=== PATIENT | male | born 1940 | race Hispanic/Latino ===

== ENCOUNTER 2021-12-21 07:49 | Observation (INO) | payer MEDICARE ==
[2021-12-19 10:47] LABS: BASOPHILS % (AUTO) 0.5 % (0.0-5.0); EOSINOPHILS % (AUTO) 2.5 % (0.0-8.0); LYMPHOCYTES % (AUTO) 19.4 % (21.0-51.0); MEAN CORPUSCULAR HEMOGLOBIN 29.4 pg (27.0-33.0); MEAN CORPUSCULAR HGB CONC 32.3 g/dL (32.0-36.0); MEAN CORPUSCULAR VOLUME 91.1 fL (79-99); MONOCYTES % (AUTO) 7.9 % (3.0-13.0); NEUTROPHILS % (AUTO) 69.4 % (40.0-77.0); PLATELET COUNT (AUTO) 142 K/uL (130-400); RED BLOOD CELL COUNT(AUTO) 4.39 MIL/uL (4.50-6.20); RED CELL DISTRIBUTION WIDTH 13.9 % (11.0-15.5); WHITE BLOOD COUNT (AUTO) 6.3 K/uL (4.8-10.8)
[2021-12-19 10:56] LABS: ALBUMIN 3.8 g/dL (3.5-5.0); CARBON DIOXIDE 28 mmol/L (21-32); CHLORIDE 106 mmol/L (101-111); CREATININE 1.4 mg/dL (0.5-1.5); CRP QUANTITATIVE < 2.00 mg/L (0.00-9.0); GLOMERULAR FILTR. RATE CALC 51 mL/min (>60); GLUCOSE,RANDOM 94 mg/dL (70-105); SODIUM SERUM 140 mmol/L (136-145); UREA NITROGEN, BLOOD 22 mg/dL (7-18)
[2021-12-19 10:57] LABS: INR 0.93 (0.85-1.15); PROTHROMBIN TIME 10.1 SEC (9.6-11.6)
[2021-12-19 10:58] LABS: PARTIAL THROMBOPLASTIN TIME 32.2 SEC (26.3-35.5)
[2021-12-19 11:01] LABS: POTASSIUM 6.1 mmol/L (3.5-5.1)
[2021-12-19 11:19] LABS: APPEARANCE,URINE CLEAR (CLEAR); BILIRUBIN,URINE NEGATIVE (NEGATIVE); COLOR,URINE LIGHT-YELLOW (YELLOW); GLUCOSE, URINE (UA) NEGATIVE (NEGATIVE); KETONES,URINE NEGATIVE (NEGATIVE); LEUKOCYTE ESTERASE ,URINE NEGATIVE Leu/uL (NEGATIVE); NITRATE,URINE NEGATIVE (NEGATIVE); OCCULT BLOOD,URINE NEGATIVE (NEGATIVE); PROTEIN,URINE NEGATIVE (NEGATIVE); UROBILINOGEN,URINE 0.2 mg/dL (0.2-1.0)
[2021-12-20 11:25] VITALS: BP 145/73
[2021-12-21] VITALS (21 sets, daily range): BP systolic 114–166; BP diastolic 54–80
[~2021-12-21] VITALS: Ht 160 cm; Wt 76.0 kg
[~2021-12-21 07:49] MED LIST: AMLO-258 PO; ASCO500C18 PO; ASPI-1005 PO; CETI10TA57 PO; CHOL100046 PO; FEXO-23 PO; FISH1CAP27 PO; LOVA10TA2 PO; MULT-1258 PO; PANT40TA PO; POTA99TA26 PO; VALS320T16 PO
[2021-12-21] MEDS ORDERED: LACTATED RINGERS 1000ML 1,000 ML IV ONE (08:36)
[2021-12-21] MEDS: CEFAZOLIN SODIUM 1 GM VIAL IVPB SCH ×2 (09:00→14:46)
[2021-12-21 09:16] LABS: CREATININE 1.5 mg/dL (0.5-1.5); POTASSIUM 5.1 mmol/L (3.5-5.1)
[2021-12-21] MEDS ORDERED: FENTANYL CITRATE PF 50 MCG/1 ML 5ML AMP IV ONE (10:43)
[2021-12-21] MEDS ORDERED: KETOROLAC 30MG VIAL (30MG/ML) ONE (11:09)
[2021-12-21] MEDS ORDERED: TRANEXAMIC ACID 1000MG/10ML ONE ×2 (11:09→11:12)
[2021-12-21] MEDS ORDERED: ROPIVACAINE 0.5% 5MG/ML 30ML IJ ONE ×3 (11:09→12:56)
[2021-12-21] MEDS ORDERED: PHENYLEPHRINE HCL 10 MG/ML 1ML VIAL IV ONE (12:13)
[2021-12-21] MEDS ORDERED: SUCCINYLCHOLINE CHLORIDE 20 MG/ML 10 ML VIAL ONE (12:46)
[2021-12-21] MEDS ORDERED: DEXAMETHASONE SOD PHOSPHATE 10MG/ML 1ML VIAL ONE (12:46)
[2021-12-21] MEDS ORDERED: LIDOCAINE PF 100MG/5ML (2%) SYRINGE 5ML ONE (12:46)
[2021-12-21] MEDS ORDERED: GLYCOPYRROLATE 1 MG/5 ML SYRINGE ONE (12:48)
[2021-12-21] MEDS ORDERED: NEOSTIGMINE 5MG/5ML SYR IV ONE (12:48)
[2021-12-21] MEDS ORDERED: ONDANSETRON 4MG INJ ONE (12:48)
[2021-12-21] MEDS ORDERED: PROPOFOL 10 MG/ML 20ML VIAL IV ONE (12:48)
[2021-12-21] MEDS ORDERED: ROCURONIUM 10MG/1ML SYR 10 MG/ML ML ONE (12:49)
[2021-12-21] MEDS ORDERED: MIDAZOLAM HCL 1 MG/ML 2ML VIAL ONE (12:49)
[2021-12-21] MEDS ORDERED: FENTANYL CITRATE PF 50 MCG/1 ML 2ML VIAL ONE (13:02)
[2021-12-21] MEDS ORDERED: EPHEDRINE SULFATE 50 MG/ML AMPULE ONE (15:23)
[2021-12-21] MEDS ORDERED: KETOROLAC 15MG/ML VIAL (15MG/ML) IV PRN (16:00)
[2021-12-21] MEDS ORDERED: LIDOCAINE HCL-MPF 1% 2ML VIAL IV PRN (16:00)
[2021-12-21] MEDS ORDERED: TRAMADOL HCL 50 MG TABLET PO PRN (16:00)
[2021-12-21] MEDS ORDERED: ONDANSETRON 4MG INJ IVP PRN (16:00)
[2021-12-21] MEDS ORDERED: POTASSIUM CHLORIDE 10% ELIXIR 20 MEQ/15 ML UDCUP PO PRN (16:00)
[2021-12-21] MEDS ORDERED: CALCIUM CARB 500MG PO PRN (16:00)
[2021-12-21] MEDS ORDERED: CYCLOBENZAPRINE HCL 10 MG TABLET PO PRN (16:00)
[2021-12-21] MEDS: KETOROLAC 15MG/ML VIAL (15MG/ML) IV SCH ×2 (16:00→23:23)
[2021-12-21] MEDS ORDERED: DiphenhydrAMINE HCL 50 MG/ML VIAL IVP PRN (16:00)
[2021-12-21] MEDS ORDERED: FERROUS FUMARATE 324 MG TABLET PO PRN (16:00)
[2021-12-21] MEDS ORDERED: KCL 20 MEQ ERTAB PO PRN (16:00)
[2021-12-21] MEDS ORDERED: POTASSIUM CHLORIDE 20MEQ/100ML 100 ML IV PRN (16:00)
[2021-12-21] MEDS: 0.9%NACL 1000ML 1,000 ML IV SCH ×2 (17:40→23:24)
[2021-12-21] MEDS: HYDROCODONE/ACETAMINOPHEN 5/325 MG TAB PO PRN (20:49)
[2021-12-21] MEDS: CEFAZOLIN SODIUM 1 GM VIAL IVP SCH (20:49)
[2021-12-21] MEDS: SIMVASTATIN 10 MG TABLET PO SCH (20:50)
[2021-12-21] MEDS: AMLODIPINE 5 MG TAB PO SCH (20:50)
[2021-12-21] MEDS: GABAPENTIN 100 MG CAPSULE PO SCH (20:50)
[2021-12-21] MEDS: CETIRIZINE HCL 5 MG TABLET PO SCH (20:50)
[2021-12-22] VITALS (7 sets, daily range): BP systolic 102–144; BP diastolic 49–82
[2021-12-22] MEDS: CEFAZOLIN SODIUM 1 GM VIAL IVP SCH (04:17)
[2021-12-22 04:36] LABS: HEMATOCRIT 31.3 % (42-54); MEAN CORPUSCULAR HGB CONC 34.2 g/dL (32.0-36.0); MEAN CORPUSCULAR VOLUME 87.7 fL (79-99); RED BLOOD CELL COUNT(AUTO) 3.57 MIL/uL (4.50-6.20); RED CELL DISTRIBUTION WIDTH 13.3 % (11.0-15.5); WHITE BLOOD COUNT (AUTO) 8.6 K/uL (4.8-10.8)
[2021-12-22 05:19] LABS: CREATININE 1.5 mg/dL (0.5-1.5); POTASSIUM 4.7 mmol/L (3.5-5.1)
[2021-12-22] MEDS: KETOROLAC 15MG/ML VIAL (15MG/ML) IV SCH (08:00)
[2021-12-22] MEDS: ASCORBIC ACID 500 MG TAB PO SCH (08:53)
[2021-12-22] MEDS: ASPIRIN 325MG TAB PO SCH (08:53)
[2021-12-22] MEDS: FISH OIL 1000 MG/CAP PO SCH (08:53)
[2021-12-22] MEDS: PANTOPRAZOLE 40 MG TAB DR PO SCH (08:54)
[2021-12-22] MEDS: POLYETHYLENE GLYCOL 3350 17 GM POWD.PACK PO SCH (08:54)
[2021-12-22] MEDS: MULTIVITS,STRESS FORMULA/ZINC 1 TABLET PO SCH (08:54)
[2021-12-22] MEDS: GABAPENTIN 100 MG CAPSULE PO SCH ×3 (08:54→19:47)
[2021-12-22] MEDS: LOSARTAN 100 MG TABLET PO SCH (08:54)
[2021-12-22] MEDS: [UNRECOGNIZED DRUG - REMARK] PO SCH (08:56)
[2021-12-22] MEDS: ***HM*** (Cholecalciferol (Vitamin D3) (Vitamin D3) 25 MCG) PO SCH (08:56)
[2021-12-22] MEDS: ASPIRIN 81MG CHEW TAB PO SCH (08:59)
[2021-12-22] MEDS: 0.9%NACL 1000ML 1,000 ML IV SCH (12:00)
[2021-12-22] MEDS ORDERED: HYDR-4060 PO (16:18)
[2021-12-22] MEDS ORDERED: DOCU-116 PO (16:18)
[2021-12-22] MEDS ORDERED: CYCL-309 PO (16:18)
[2021-12-22] MEDS ORDERED: GABA100C PO (16:18)
[2021-12-22] MEDS ORDERED: ASPI-1026 PO (16:18)
[2021-12-22] MEDS: HYDROCODONE/ACETAMINOPHEN 5/325 MG TAB PO PRN (19:47)
[2021-12-22] MEDS: SIMVASTATIN 10 MG TABLET PO SCH (19:47)
[2021-12-22] MEDS: AMLODIPINE 5 MG TAB PO SCH (19:47)
[2021-12-22] MEDS: CETIRIZINE HCL 5 MG TABLET PO SCH (19:47)
[2021-12-23] VITALS: BP 109/69
[2021-12-23 04:00] VITALS: BP 123/67
[2021-12-23 07:30] VITALS: BP 155/90
[2021-12-23] MEDS: HYDROCODONE/ACETAMINOPHEN 5/325 MG TAB PO PRN (08:11)
[2021-12-23] MEDS: [UNRECOGNIZED DRUG - REMARK] PO SCH (09:00)
[2021-12-23] MEDS: ***HM*** (Cholecalciferol (Vitamin D3) (Vitamin D3) 25 MCG) PO SCH (09:00)
[2021-12-23] MEDS: ASPIRIN 81MG CHEW TAB PO SCH (09:09)
[2021-12-23] MEDS: ASPIRIN 325MG TAB PO SCH (09:09)
[2021-12-23] MEDS: MULTIVITS,STRESS FORMULA/ZINC 1 TABLET PO SCH (09:09)
[2021-12-23] MEDS: POLYETHYLENE GLYCOL 3350 17 GM POWD.PACK PO SCH (09:09)
[2021-12-23] MEDS: FISH OIL 1000 MG/CAP PO SCH (09:10)
[2021-12-23] MEDS: ASCORBIC ACID 500 MG TAB PO SCH (09:10)
[2021-12-23] MEDS: PANTOPRAZOLE 40 MG TAB DR PO SCH (09:10)
[2021-12-23] MEDS: LOSARTAN 100 MG TABLET PO SCH (09:10)
[2021-12-23] MEDS: GABAPENTIN 100 MG CAPSULE PO SCH (09:10)
[2021-12-23 11:05] VITALS: BP 142/69
[2021-12-24] MEDS ORDERED: BISACODYL 10 MG SUPP.RECT RC PRN (16:00)
== END 2021-12-23 13:25 | disposition home health service (06) ==
LOC: DAH 07:49 → DAHIP 07:50 → DAH 07:50 → 4DH 17:05
PROVIDERS: ADMIT Student in an Organized Health Care Education/Training Program; ATTEND Student in an Organized Health Care Education/Training Program
DX: M17.12 Unilateral primary osteoarthritis, left knee (principal); Z20.822 Contact with and (suspected) exposure to COVID-19; D62 Acute posthemorrhagic anemia; M21.162 Varus deformity, not elsewhere classified, left knee; M25.562 Pain in left knee; Z79.899 Other long term (current) drug therapy; Z98.890 Other specified postprocedural states
CPT/HCPCS: 36415; 64447; 73560; 76942; 80048; 81003; 82040; 84134; 85025; 85027; 85610; 85730; 86140; 87088; 87426; 87641; 96374; 96375; 96376; 97039; G0378; J0330; J0690; J1100; J1885; J2001; J2250; J2370; J2405; J2704; J2710; J2795; J3010; J3490; J7120